=== PATIENT | male | born 1990 | race Caucasian/White ===

== ENCOUNTER 2017-01-24 18:53 | Emergency (ER) | payer BC ==
[2017-01-24 19:17] VITALS: BP 138/68
--- NOTE | 2017-01-24 19:26 | EDM.PDOC ---
ED HPI GENERAL MEDICAL PROBLEM - General Chief Complaint: Lower Extremity Injury/Pain Stated Complaint: PAIN ON LEFT SIDE FROM BUTT TO ANKLE Time Seen by Provider: 01/24/17 18:59 Source of Information: Reports: Patient History Limitations: Reports: No Limitations - History of Present Illness INITIAL COMMENTS - FREE TEXT/NARRATIVE: This is a 27-year-old male. Today around 2:58 PM he was lifting weights. He was doing lifts appropriately with his knees bent and seemed to have a good weightlifting day. About 1-1-1/2 hours later is [facility] he noted increasing pain in his lower back and pain that ran down his left leg to his toes. He says while he was lifting weights he had no pain whatsoever and is not certain what he is done. He has not fallen down there's been no trauma. He says any sort of walking seems to shift stab pain into his lower back area and causes pain down his left leg. He has no history of sciatica. He has had some lumbar strains in the past but never had pain down his left leg. The tingling seems to be in his lateral toes suggesting the L5-S1 dermatome. Left Leg Pain Score (Numeric/FACES): 10 - Related Data Allergies Allergy/AdvReac Type Severity Reaction Status Date / Time codeine Allergy Swelling Verified 02/13/16 17:10 Home Meds: Home Meds Acetaminophen/oxyCODONE [Percocet 325-5 MG] 1 tab PO Q6H PRN #20 tablet [Rx] Cyclobenzaprine [Flexeril] 10 mg PO TID PRN #15 tablet 01/24/17 [Rx] Past Medical History - Past Health History Medical/Surgical History: Denies Medical/Surgical History - Past Surgical History GI Surgical History: Reports: Appendectomy Social & Family History - Tobacco Use Smoking Status *Q: Never Smoker Second Hand Smoke Exposure: No - Caffeine Use Caffeine Use: Reports: Soda - Recreational Drug Use Recreational Drug Use: No Review of Systems - Review of Systems Review Of Systems: See Below Constitutional: Denies: Chills, Fever Eyes: Reports: No Symptoms Ears: Reports: No Symptoms Nose: Reports: No Symptoms Mouth/Throat: Reports: No Symptoms Respiratory: Reports: No Symptoms Cardiovascular: Reports: No Symptoms GI/Abdominal: Reports: No Symptoms Genitourinary: Reports: No Symptoms. Denies: Incontinence Musculoskeletal: Reports: Back Pain Skin: Reports: No Symptoms Neurological: Reports: Other (Sciatic type pain left side) Psychiatric: Reports: No Symptoms ED EXAM, GENERAL - Physical Exam Exam: See Below Exam Limited By: No Limitations General Appearance: Alert, WD/WN, Mild Distress Eye Exam: Bilateral Eye: Normal Inspection Ears: Normal External Exam Nose: Normal Inspection Throat/Mouth: Normal Lips, Normal Voice Head: Normocephalic Neck: Supple Respiratory/Chest: No Respiratory Distress, Lungs Clear, Normal Breath Sounds Cardiovascular: Regular Rate, Rhythm, No Murmur GI/Abdominal: Non-Tender Back Exam: Other (He has slight tenderness in the lumbar paraspinal muscles in the lower lumbar area but nothing that reproduces his pain down his leg, the vertebral midline spinous processes are nontender in the lumbar spine, palpation of the left SI joint causes marked discomfort and pain that seems to run down his left leg, the pain down his left leg appears to go posteriorly in the L5-S1 dermatome and seems to involve the toes on the lateral side of his left foot toes #4 and 5 mostly, he still has sensation to his lateral toes but they're numb and tingly. The right SI joint does not appear to be tender the hip itself does not appear to be tender on palpation, he is laying on his abdomen because it hurts too much to lay on his back.) Extremities: Other (The left lower extremity a hamstring muscle appears to be having some spasms in the distal part of the muscle, there is no bruising noted so I do not suspect that he's got a torn hamstring even though it is very tender on palpation, even his calf is somewhat tender on palpation but there is no abnormality or deformity noted, he hesitates to move his knee due to the hamstring and calf tenderness as well as move his ankle but he is able to move it some. There is no evidence of trauma to his left lower extremity, the right lower extremity is normal on evaluation and inspection. ) Neurological: Alert, Oriented, Other (As above) Psychiatric: Normal Affect, Normal Mood Skin Exam: Warm, Dry Departure - Departure Time of Disposition: 19:37 Disposition: Home, Self-Care 01 Condition: Fair Clinical Impression: Sacroiliac dysfunction, Sacroiliitis, Pain of left sacroiliac joint, Sciatica of left side Lumbar spine strain Qualifiers: Encounter type: initial encounter Qualified Code(s): S39.012A - Strain of muscle, fascia and tendon of lower back, initial encounter - Discharge Information Prescriptions: Acetaminophen/oxyCODONE [Percocet 325-5 MG] 1 tab PO Q6H PRN #20 tablet PRN Reason: Pain Cyclobenzaprine [Flexeril] 10 mg PO TID PRN #15 tablet PRN Reason: Spasms Referrals: Perez Huang MD [Physician] - Forms: ED Department Discharge, Return to Work/School Form Additional Instructions: Use the crutches when you are up and moving about, you need to use ice to the left sacroiliac joint and left hamstring on and off as much as possible for the next 48 hours, then Friday you may begin to use ice as well as heat to the left sacroiliac joint and the left hamstring muscle, taken medication for pain and spasms as needed, begin taking Aleve 2 tablets at least twice a day and have some food in your stomach when you take them, you'll be off work until Friday but you need to call Dr. Huang's office Friday for an appointment to be seen, he will determine if you need physical therapy, memory care director, or additional rest and medications. If there is marked worsening of your symptoms return to the ER over the weekend.
[2017-01-24] MEDS ORDERED: HYDROmorphone 1 MG/ML Syringe IM ONE (19:33)
== END 2017-01-24 20:00 | disposition home or self-care (01) ==
LOC: JD.ED 18:53
DX: S39.012A Strain of muscle, fascia and tendon of lower back, initial encounter (principal); M46.1 Sacroiliitis, not elsewhere classified; M54.32 Sciatica, left side; X50.0XXA Overexertion from strenuous movement or load, initial encounter; Z88.5 Allergy status to narcotic agent; Z90.49 Acquired absence of other specified parts of digestive tract
CPT/HCPCS: 96372; 99283; J1170

== ENCOUNTER 2022-06-01 07:03 | Emergency (ER) | payer BC ==
[2022-06-01 07:54] VITALS: BP 150/95; PULSE 100
== END 2022-06-01 10:00 | disposition home or self-care (01) ==
LOC: JD.ED 07:03
DX: M70.22 Olecranon bursitis, left elbow (principal); Z88.5 Allergy status to narcotic agent; W01.0XXA Fall on same level from slipping, tripping and stumbling without subsequent striking against object, initial encounter
CPT/HCPCS: 73080-26-LT; 73080-LT; 99283